=== PATIENT | female | born 1985 | race Two or more races ===

== ENCOUNTER 2018-12-18 08:05 | Inpatient (IN) | payer OTHER ==
[~2018-12-18] VITALS: Ht 165.1 cm; Wt 117.9 kg
[2018-12-18] VITALS (19 sets, daily range): BP systolic 66–137; BP diastolic 50–74
[~2018-12-18 08:05] MED LIST: cefOXitin Sod 2 GM in D5W 110 ML IVPB ONE
[2018-12-18] MEDS ORDERED: ONE DAILY MULT1 EAC1 ORAL (08:36)
[2018-12-18] MEDS ORDERED: IRON18 M1 PO (08:36)
[2018-12-18] MEDS ORDERED: PROBIOTIC1 EAC2 PO (08:36)
[2018-12-18] MEDS ORDERED: FISH OIL CAP1000 MG ORAL (08:36)
[2018-12-18] MEDS ORDERED: VITAMIN B122500 MCG PO (08:36)
[2018-12-18] MEDS ORDERED: Bupivacaine 0.5% Inj 30 ml vial INJ ONE (08:42)
[2018-12-18] MEDS ORDERED: NS Irrig 1000ml IRRIG ONE ×2 (09:24→10:20)
[2018-12-18] MEDS ORDERED: Zemuron 50mg/5ml Inj IV ONE ×2 (09:48→11:11)
[2018-12-18] MEDS ORDERED: Midazolam 2mg/2ml Inj ONE (09:49)
[2018-12-18] MEDS ORDERED: fentaNYL 100 mcg/2 mL IV ONE ×2 (09:49→11:06)
[2018-12-18] MEDS ORDERED: cefOXitin 2gm Inj ONE (09:51)
[2018-12-18] MEDS ORDERED: Sterile Water Irrig 1000ml IRRIG ONE (10:00)
[2018-12-18] MEDS ORDERED: NS Irrig 1000ml ONE (10:00)
[2018-12-18] MEDS ORDERED: LR 1000ml ONE (10:00)
--- NOTE | 2018-12-18 10:10 | Pre-Procedure Note/Attestation ---
Pre-Procedure Note/Attestation Complete Prior to Procedure Planned Procedure: not applicable Procedure Narrative: Hysteroscopy, dilation and curettage, mini-lap myomectomy Indications for Procedure Pre-Operative Diagnosis: Uterine fibroids, pelvic pain, abnormal uterine bleeding Attestation I attest that I discussed the nature of the procedure; its benefits; risks and complications; and alternatives (and the risks and benefits of such alternatives ), prior to the procedure, with the patient (or the patient's legal open claims representative). I attest that, if there was a reasonable possibility of needing a blood transfusion, the patient (or the patient's legal open claims representative) was given the [place] Department [employer] Services standardized written summary, pursuant to the Jair Reinaldo Blood Safety Act ([place] Health and Safety Code # 1645, as amended). I attest that I re-evaluated the patient just prior to the surgery and that there has been no change in the patient's H&P, except as documented below: NONE Hina Ibarra M.D. Dec 18, 2018 10:10
[2018-12-18] MEDS: Ropivacaine 5mg/ml Vial 30ml INJ ONE ×2 (10:20→12:22)
[2018-12-18] MEDS ORDERED: DiphenhydrAMINE 50mg/ml Inj IVP PRN (10:45)
[2018-12-18] MEDS ORDERED: fentaNYL 100 mcg/2 mL IV PRN (10:45)
[2018-12-18] MEDS ORDERED: Metoclopramide 10mg/2ml Inj IVP PRN (10:45)
[2018-12-18] MEDS ORDERED: Propofol 200mg/20ml IV ONE (10:49)
[2018-12-18] MEDS ORDERED: Metoclopramide 10mg/2ml Inj ONE (10:49)
[2018-12-18] MEDS ORDERED: Lidocaine 1% MPF 10mg/ml 5ml ONE (10:49)
--- NOTE | 2018-12-18 10:49 | Anethesia Preoperative Eval ---
Anesthesia Pre-op PMH/ROS General Date of Evaluation: Dec 18, 2018 Time of Evaluation: 10:00 Anesthesiologist: timo ASA Score: ASA 2 Mallampati Score Class I : Soft palate, uvula, fauces, pillars visible Class II: Soft palate, uvula, fauces visible Class III: Soft palate, base of uvula visible Class IV: Only hard plate visible Mallampati Classification: Class II Surgeon: shanique Diagnosis: uterine fibroids Surgical Procedure: mini laparatomy Anesthesia History: none Allergies: Coded Allergies: No Known Allergies (Unverified , 12/18/18) Medications: see eMAR Patient NPO?: Yes NPO Date: Dec 18, 2018 NPO Time: 00:01 Past Medical History Cardiovascular: Denies: HTN, CAD, NM, valve dz, arrhythmia, other Pulmonary: Denies: asthma, COPD, CARMINA, other Gastrointestinal/Genitourinary: Denies: GERD, CRI, ESRD, other Neurologic/Psychiatric: Denies: dementia, CVA, depression/anxiety, TIA, other Endocrine: Denies: DM, hypothyroidism, steroids, other HEENT: Denies: cataract (L), cataract (R), glaucoma, NOME (L), NOME (R), other Hematology/Immune: Denies: anemia, DVT, bleeding disorder, other Musculoskeletal/Integumentary: Denies: OA, RA, DJD, DDD, edema, other Other: obesity Anesthesia Pre-op Phys. Exam Physician Exam Last Vital Signs Date Time Temp Pulse Resp B/P (MAP) Pulse Ox O2 Delivery O2 Flow Rate FiO2 12/18/18 08:42 97.9 67 18 137/74 97 Room Air Constitutional: NAD Neurologic: CN 2-12 intact Cardiovascular: RRR Respiratory: CTA Gastrointestinal: S/NT/ND Airway Exam Mallampati Classification 2 Mallampati Score: Class II MO: full ROM: full Dentures: no upper, no lower Anesthesia Pre-op A/P Labs Urine Test Test 12/18/18 08:10 Urine HCG, Qualitative Negative (NEGATIVE) Studies Pre-op Studies: EKG - r Risk Assessment & Plan Plan: general Pre-Antibiotics Drug: mefoxitin Given Within 1 Hr of Incision: Yes Time Given: 10:20 Jaci Cartwright CRNA Dec 18, 2018 10:49
[2018-12-18] MEDS ORDERED: Acetaminophen (Non formulary) 100 ML IV ONE (11:30)
[2018-12-18] MEDS ORDERED: Ropivacaine 5mg/ml Vial 30ml INJ ONE (12:19)
[2018-12-18] MEDS ORDERED: Zolpidem 5mg tab ORAL PRN (12:30)
[2018-12-18] MEDS ORDERED: Ketorolac 30mg Inj IM PRN (12:30)
[2018-12-18] MEDS ORDERED: HYDROcodone/Acetamin 10/325 tab ORAL PRN (12:30)
[2018-12-18] MEDS ORDERED: HYDROcodone/Acetamin 5/325 tab ORAL PRN (12:30)
[2018-12-18] MEDS ORDERED: HYDROmorphone 1mg/ml Carpuject IVP PRN ×2 (12:30→18:30)
--- NOTE | 2018-12-18 12:30 | Operative Note - PDOC ---
Operative Note Operative Note Date of Operation/Procedure: Dec 18, 2018 Chief Complaint: Pelvic pain, abnormal bleeding, uterine fibroids Pre-op Diagnosis: Uterine fibroids, pelvic pain, abnormal uterine bleeding Procedure: Hysteroscopy, dilation and curettage, abdominal myomectomy Post-op Diagnosis: Uterine fibroids, possible adenomyosis Surgeon: Hina Ibarra MD Vacuum Drier Tender: Reji Sharp MD Anesthesiologist: Jaci Cartwright Anesthesia: general Specimen: yes Complications: none Condition: stable Fluids: 1000cc crystallod Estimated Blood Loss: volume - 150cc Drains: other - Gray in situ, 75cc clear urine at the end of the procedure Implant(s) used?: No Indications for Procedure Pelvic pain, AUB, fibroids Description of Procedure The R/B/A of the procedure were discussed with the patient and informed consent was obtained. The patient was taken to the operating room with IV in place. She was placed on the operating table in dorsal supine position. SCD stockings were placed. General anesthesia was administered without difficulty. The patient was then placed in the dorsal lithotomy position. The was prepped and draped in the usual sterile fashion. Gray catheter was inserted into the urinary bladder. A time out was called to verify patient and procedure. A bivalve speculum was inserted into the vagina and the anterior lip of the cervix was grasped with a single-toothed tenaculum. The cervix was sequentially dilated to accommodate the diagnostic hysteroscope. The hysteroscope was inserted and the uterine cavity was noted to be normal, however the uterus was bulky posteriorly. The bilateral ostia were visualized and noted to be normal. The hysteroscope was withdrawn and curettage was performed. The endometrial curettings were handed off the surgical field to be sent to Pathology. All instruments were removed from the vagina and attention was then turned to the abdomen. A Pfannenstiel incision was made with the scalpel and carried down through the subcutaneous tissue to the fascia with the bovie. The fascia was incised at the midline and extended laterally with the bovie. The fascia was from the underlying rectus tissue superiorly and inferiorly using blunt dissection and with the bovie. The peritoneum was identified, entered bluntly and stretched , with care being taken to identify and avoid the bladder. The Jayy retractor was placed and stabilized without complication. The uterus was elevated into the incision. Two fibroids were visualized on the fundal portion of the uterus and an additional small fibroid was palpated in the posterior lower uterine segment, however it was approaching the cervix and thus the decision was made to leave the fibroid in situ. The uterus itself was very globular and soft, concerning for adenomyosis, and no additional discrete fibroids were palpated within the uterine wall. Myomectomy was performed - Pitrussin was injected in the base of the fibroids. The serosa was incised with the bovie and the fibroids were easily dissected away from the myometrial tissue. This was done for both fibroids. The uterine incision sites were closed using multilayer closure of 0-Vicryl. The serosa was reapproximated with 3-0 Vicryl and excellent hemostasis was noted. The abdomen was irrigated and the uterine incisions were again inspected and noted to be hemostatic. The Jayy retractor was removed without incident. A manual and visual sweep was performed. The anterior peritoneum was closed with a running suture of 2-0 Vicryl and the rectus muscles were reapproximated with a running suture of 2-0 Vicryl. Excellent hemostasis was obtained. The fascia was closed with running sutures of 0-Vicryl. The subcutaneous layer was irrigated, all bleeding vessels were cauterized, and then closed with running 3- 0 plain suture. The skin was closed witn 4-0 Monocryl in a subcuticular fashion. Mastisol, steri-strips, and a pressure dressing were applied. All instrument, sponge, and needle counts were correct x 2. The patient was brought to the recovery room in stable condition. Hina Ibarra M.D. Dec 18, 2018 12:29
[2018-12-18] MEDS ORDERED: Ketorolac 30mg Inj ONE (12:34)
[2018-12-18] MEDS ORDERED: Neostigmine 1mg/ml 10ml Inj ONE (12:34)
[2018-12-18] MEDS ORDERED: Glycopyrrolate 0.2mg/ml 1ml Vial ONE (12:34)
--- NOTE | 2018-12-18 12:44 | Immediate Post-Op Evaluation ---
Immediate Post-Op Evalulation Immediate Post-Op Evalulation Procedure: myomectomy Date of Evaluation: Dec 18, 2018 Time of Evaluation: 12:44 IV Fluids: 1000 Blood Products: 0 Estimated Blood Loss: 100 Urinary Output: 100 Blood Pressure Systolic: 107 Blood Pressure Diastolic: 50 Pulse Rate: 45 Respiratory Rate: 14 O2 Sat by Pulse Oximetry: 99 Temperature (Fahrenheit): 97.5 Nausea: No Vomiting: No Patient Status: awake, reacts, patent Hydration Status: adequate Drug: mefoxitin Given Within 1 Hr of Incision: Yes Time Given: 10:00 Jaci Cartwright CRNA Dec 18, 2018 12:44
[2018-12-18] MEDS ORDERED: D5 1/2NS w/KCl 20mEq 1,000 ML IV SCH (14:00)
--- NOTE | 2018-12-18 15:00 | NUR ---
NURSE NOTES: PATIENT RECEIVED FROM PACU ON BED WITH FAMILY PRESENT. PATIENT AOX4. ABDOMINAL SURGICAL SITE C/D/I. DENIES PAIN AT THIS TIME. HUBBARD PATENT AND SECURED. BEDSIDE REPORT RECEIVED. PT/FAMILY ORIENTED TO ROOM. BED IN LOWEST AND LOCKED POSITION. CALL LIGHT WITHIN REACH AND DEMONSTRATED HOW TO USE. WILL CONTINUE TO MONITOR.
[2018-12-18] MEDS: D5 1/2NS w/KCl 20mEq 1,000 ML IV SCH ×2 (16:17→20:47)
--- NOTE | 2018-12-18 17:44 | NUR ---
NURSE NOTES: PATIENT REMAINS STABLE. PAIN MANAGED WITH PAIN MEDICATIONS. VSS.AFEBRILE. SURGICAL SITE C/D/I.
--- NOTE | 2018-12-18 19:21 | NUR ---
HAND-OFF: Report given to DELORES GARDNER LVN.
--- NOTE | 2018-12-18 19:21 | NUR ---
NURSE NOTES: Patient received Priscilla RVigneshPatient A/A/OX4 . Patient denies any pain at this time . no s/s of distress. RH g#20 D5 1/2 NS with 20 meq @150cc/hr Infusing . Anterior abdominal dressing C/D/I .zuniga catheter draining to yellow urine . patient kept NPO Except meds and ice chips . Patient verbalized her understanding . Family at bedside. Safety / fall precaution . call light within reach .bed in low position . will continue to monitor .
[2018-12-18] MEDS: Ketorolac 30mg Inj IM SCH (20:47)
--- NOTE | 2018-12-18 20:47 | NUR ---
NURSE NOTES:Patient vss, afebrile . Pain managed with pain medications. will continue to monitor.
[2018-12-19] VITALS: BP 133/73
[2018-12-19] MEDS: Ketorolac 30mg Inj IM SCH ×2 (03:05→08:53)
[2018-12-19 04:00] VITALS: BP 113/61
[2018-12-19] MEDS: D5 1/2NS w/KCl 20mEq 1,000 ML IV SCH ×2 (04:11→11:00)
--- NOTE | 2018-12-19 06:00 | NUR ---
NURSE NOTES:Patient zuniga catheter d/cd at 06:00 am with 750 yellow color urine out put . will continue to monitor. jose care done with scanty vaginal bleeding with new peripad . will continue to monitor .
[2018-12-19 07:20] VITALS: BP 113/61
--- NOTE | 2018-12-19 07:20 | NUR ---
HAND-OFF: Report given to MINESH Rodriguez and to watch patient voiding .
[2018-12-19 07:24] LABS: BASOPHILS % (AUTO) 0.3 % (0.0-2.0); EOSINOPHILS % (AUTO) 0.6 % (0.0-3.0); HEMATOCRIT 34.1 % (37.0-47.0); HEMOGLOBIN 11.2 G/DL (12.0-16.0); LYMPHOCYTES % (AUTO) 16.5 % (20.0-45.0); MEAN CORPUSCULAR VOLUME 91 FL (80-99); MONOCYTES % (AUTO) 7.6 % (1.0-10.0); PLATELET COUNT 182 K/UL (150-450); RED BLOOD COUNT 3.74 M/UL (4.20-5.40); RED CELL DISTRIBUTION WIDTH 14.6 % (11.6-14.8); WHITE BLOOD COUNT 8.9 K/UL (4.8-10.8)
--- NOTE | 2018-12-19 07:44 | NUR ---
NURSE NOTES: AWAKE/ALERT. PAIN SCALE 5/10 GIVEN NORCO 5/10 1 TAB PO. WITH MINIMAL VAGINAL BLEEDING. IN NO DISTRESS.
[2018-12-19 08:00] VITALS: BP 122/69
--- NOTE | 2018-12-19 10:57 | 48 Hour Post Anesthesia Eval ---
Post Anesthesia Evaluation Procedure: myomectomy Date of Evaluation: Dec 19, 2018 Time of Evaluation: 10:56 Blood Pressure Systolic: 128 0: 76 Pulse Rate: 64 Respiratory Rate: 20 Temperature (Fahrenheit): 97.6 O2 Sat by Pulse Oximetry: 98 Airway: patent Nausea: No Vomiting: No Pain Intensity: 3 Hydration Status: adequate Cardiopulmonary Status: stable Mental Status/LOC: patient returned to baseline Follow-up Care/Observations: n/a Post-Anesthesia Complications: none Follow-up care needed: ready to discharge Geronimo Campuzano MD Dec 19, 2018 10:57
[2018-12-19 12:00] VITALS: BP 130/72
--- NOTE | 2018-12-19 12:09 | General Progress Note ---
Progress Note Progress Note GYNECOLOGY PROGRESS NOTE S: Patient is POD#1 s/p HSC, D&C, mini-lap myomectomy. She is doing well - tolerating PO, passing flatus, voiding, and ambulating. O: Vitals reviewed, WNL Exam: Gen: NAD CV: No tachycardia Pulm: No increased work of breathing Abd: Soft, obese, appropriate TTP - bandage removed, incision c/d/i with steri- strips in place Ext: No calf TTP Labs: Test 12/19/18 06:38 White Blood Count 8.9 K/UL (4.8-10.8) Red Blood Count 3.74 M/UL (4.20-5.40) L Hemoglobin 11.2 G/DL (12.0-16.0) L Hematocrit 34.1 % (37.0-47.0) L Mean Corpuscular Volume 91 FL (80-99) Mean Corpuscular Hemoglobin 30.0 PG (27.0-31.0) Mean Corpuscular Hemoglobin Concent 32.8 G/DL (32.0-36.0) Red Cell Distribution Width 14.6 % (11.6-14.8) Platelet Count 182 K/UL (150-450) Mean Platelet Volume 7.3 FL (6.5-10.1) Neutrophils (%) (Auto) 75.0 % (45.0-75.0) Lymphocytes (%) (Auto) 16.5 % (20.0-45.0) L Monocytes (%) (Auto) 7.6 % (1.0-10.0) Eosinophils (%) (Auto) 0.6 % (0.0-3.0) Basophils (%) (Auto) 0.3 % (0.0-2.0) A/P: 33yo G0 s/p mini-lap myomectomy, HSC, D&C - doing well, no issues - Discharge patient home - she has met all post-op milestones - Labs wnl - Prescriptions were filled prior to admission - Return precautions reviewed - f/u in the office in 2 weeks Hina Ibarra M.D. Dec 19, 2018 12:09
--- NOTE | 2018-12-19 13:20 | NUR ---
NURSE NOTES: DISCHARGED HOME PER WHEELCHAIR ACCPD BY IN STABLE CONDITION. DC INSTRUCRIONS GIVEN.
--- NOTE | 2018-12-21 09:21 | Discharge Summary ---
Discharge Summary Hospital Course Date of Admission Dec 18, 2018 at 13:41 Date of Discharge Dec 19, 2018 at 13:20 Admitting Diagnosis Pelvic pain, uterine fibroids, abnormal uterine bleeding Reason for Hospitalization: Elective surgery HPI Magaly Scanlon is a 33 year old female who was admitted on Dec 18, 2018 at 13:41 for Uterine Fibroids Procedures s/p 12/18/[address] Alivia Ibarra s/post hysteroscopy, dilatation and curettage, mini-lap myomectomy Hospital Course status post surgery course of recovery uneventful on postop day 1 hemodynamically stable tolerated p.o. passed flatus voided freely ambulated without difficulties laboratory work-up within normal limits patient had prescription , which were filled prior to admission return precaution reviewed discharge instructions provided patient to follow-up with surgeon in the clinic in 2 weeks as outpatient FINAL DIAGNOSES Uterine fibroids Pelvic pain Abnormal uterine bleeding status post hysteroscopy, dilation and curettage, mini-lap myomectomy Discharge Medications Continued Medications: Cyanocobalamin (Vitamin B-12) (Vitamin B12) 2,500 Mcg Tablet Unknown Dose PO DAILY, TAB (This prescription has been renewed) Fish Oil (Fish Oil 1,000 mg Capsule) 1 Each Capsule 1000 MG ORAL DAILY, CAP (This prescription has been renewed) Iron (Iron) 18 Mg Tablet Unknown Dose PO DAILY, TAB (This prescription has been renewed) Lactobacillus Acidophilus (Probiotic) 1 Each Capsule 1 EACH PO DAILY, CAP (This prescription has been renewed) Multivitamin (One Daily Multivitamin) 1 Each Tablet 1 TAB ORAL DAILY, #30 TAB 0 Refills (This prescription has been renewed) Discharge Condition Upon Discharge: stable Discharge Disposition Patient was discharged home Discharge Instructions Discharge Instructions Special Instructions I have been assigned to complete a D/C Summary on this account. I was not involved in the patient management Yeimy Hartman NP Dec 21, 2018 09:21
--- NOTE | 2018-12-27 15:37 | NUR ---
CASE MANAGEMENT: Clinical information (face sheet/ ER MD notes/ H&P) faxed to [facility] @ [phone]. T#[id number]
== END 2018-12-19 13:20 | disposition home or self-care (01) | DRG 742 ==
LOC: SUR 08:05 → 3E 13:41
DX: D25.9 Leiomyoma of uterus, unspecified (principal); Z68.41 Body mass index [BMI] 40.0-44.9, adult; N93.9 Abnormal uterine and vaginal bleeding, unspecified; R10.2 Pelvic and perineal pain; E66.9 Obesity, unspecified; N94.6 Dysmenorrhea, unspecified
CPT/HCPCS: 36415; 81025; 85025; 94003; 94150; J2250; J2405; J2710; J2765

== ENCOUNTER 2019-02-08 13:58 | Emergency (ER) | payer OTHER ==
[~2019-02-08] VITALS: Ht 165.1 cm; Wt 117.9 kg
[~2019-02-08 13:58] MED LIST changes: +FISH OIL CAP1000 MG ORAL; +IRON18 M1 PO; +ONE DAILY MULT1 EAC1 ORAL; +PROBIOTIC1 EAC2 PO; +VITAMIN B122500 MCG PO; -cefOXitin Sod 2 GM in D5W 110 ML IVPB ONE
--- NOTE | 2019-02-08 14:24 | Emergency Room Report ---
History of Present Illness General Chief Complaint: General Complaint Source: Patient Present Illness HPI Patient is a 33-year-old female who presents after prolonged heavy vaginal bleeding. Patient had been followed by Dr. Katerina Ibarra. Recent been diagnosed with adenomyosis. She had previously been on progesterone however this been discontinued due to continued bleeding. Patient denies being . she is currently taking iron pills. She reports having some dizziness with ambulation. She reports having mild bleeding at this time. Onset of bleeding was 20 days ago. Allergies: Coded Allergies: No Known Allergies (Unverified , 12/18/18) Patient History Past Medical History: see triage record Past Surgical History: other - myomectomy Last Menstrual Period: on period Reviewed Nursing Documentation: PMH: Agreed; PSxH: Agreed Nursing Documentation-PMH Past Medical History: No History, Except For Hx Cardiac Problems: No - Uterine fibroid;myoectomy in November 2018 Hx Hypertension: No Hx Pacemaker: No Hx Asthma: No Hx COPD: No Hx Diabetes: No Hx Cancer: No Hx Gastrointestinal Problems: No Hx Dialysis: No History Of Psychiatric Problem: No Hx Neurological Problems: No Hx Cerebrovascular Accident: No Hx Seizures: No Hx Vertigo: Yes Review of Systems All Other Systems: negative except mentioned in HPI Physical Exam Vital Signs Date Time Temp Pulse Resp B/P (MAP) Pulse Ox O2 Delivery O2 Flow Rate FiO2 02/08/19 14:05 99.3 99 16 135/95 (108) 100 Room Air Sp02 EP Interpretation: reviewed, normal General Appearance: normal inspection, well appearing, no apparent distress, alert, GCS 15, obese Head: atraumatic Eyes: bilateral eye conjunctivae pale ENT: normal ENT inspection, hearing grossly normal, normal voice Neck: normal inspection, full range of motion, supple, no bony tend Respiratory: normal inspection, lungs clear, normal breath sounds, no respiratory distress, no retraction, no wheezing Cardiovascular #1: regular rate, rhythm, no edema Gastrointestinal: normal inspection, normal bowel sounds, non tender, soft, no guarding, no hernia Genitourinary: no CVA tenderness Musculoskeletal: normal inspection, back normal, normal range of motion Neurologic: normal inspection, alert, oriented x3, responsive, crm architect III-XII nml as tested, speech normal Psychiatric: normal inspection, judgement/insight normal, mood/affect normal Medical Decision Making Diagnostic Impression: Primary Impression: Anemia Additional Impression: Adenomyosis ER Course Patient presented for dizziness and persistent vaginal bleeding. Differential diagnosis include was not limited to anemia, coagulopathy, dehydration among others. Because of complexity of patient's case laboratory tests were ordered. Prior history of adenomyosis as well as uterine fibroids.Patient was noted to have some evidence of anemia. Patient is not bleeding at this time. She appears to be stable for outpatient follow-up and recheck. Patient will follow- up with Dr. Hina Ibarra who is the patient's primary OB she was advised to return if worse. Labs Test 02/08/19 14:30 White Blood Count 8.9 K/UL (4.8-10.8) Red Blood Count 2.77 M/UL (4.20-5.40) Hemoglobin 8.2 G/DL (12.0-16.0) Hematocrit 24.9 % (37.0-47.0) Mean Corpuscular Volume 90 FL (80-99) Mean Corpuscular Hemoglobin 29.5 PG (27.0-31.0) Mean Corpuscular Hemoglobin Concent 32.8 G/DL (32.0-36.0) Red Cell Distribution Width 13.3 % (11.6-14.8) Platelet Count 389 K/UL (150-450) Mean Platelet Volume 5.9 FL (6.5-10.1) Neutrophils (%) (Auto) 73.0 % (45.0-75.0) Lymphocytes (%) (Auto) 20.2 % (20.0-45.0) Monocytes (%) (Auto) 4.7 % (1.0-10.0) Eosinophils (%) (Auto) 1.6 % (0.0-3.0) Basophils (%) (Auto) 0.4 % (0.0-2.0) Prothrombin Time 10.1 SEC (9.30-11.50) Prothromb Time International Ratio 0.9 (0.9-1.1) Activated Partial Thromboplast Time 26 SEC (23-33) Urine Color Pale yellow Urine Appearance Slightly cloudy Urine pH 5 (4.5-8.0) Urine Specific [place] 1.025 (1.005-1.035) Urine Protein Negative (NEGATIVE) Urine Glucose (UA) Negative (NEGATIVE) Urine Ketones Negative (NEGATIVE) Urine Blood 5+ (NEGATIVE) Urine Nitrite Negative (NEGATIVE) Urine Bilirubin Negative (NEGATIVE) Urine Urobilinogen Normal MG/DL (0.0-1.0) Urine Leukocyte Esterase 1+ (NEGATIVE) Urine RBC 20-30 /HPF (0 - 2) Urine WBC 0-2 /HPF (0 - 2) Urine Squamous Epithelial Cells Occasional /LPF Urine Bacteria Occasional /HPF (NONE) Urine Mucus Few /LPF (NONE/OCC) Urine HCG, Qualitative Negative (NEGATIVE) Sodium Level 143 MMOL/L (136-145) Potassium Level 3.8 MMOL/L (3.5-5.1) Chloride Level 108 MMOL/L (98-107) Carbon Dioxide Level 28 MMOL/L (21-32) Anion Gap 7 mmol/L (5-15) Blood Urea Nitrogen 10 mg/dL (7-18) Creatinine 0.7 MG/DL (0.55-1.30) Estimat Glomerular Filtration Rate > 60 mL/min (>60) Glucose Level 122 MG/DL (74-106) Calcium Level 8.6 MG/DL (8.5-10.1) Total Bilirubin 0.2 MG/DL (0.2-1.0) Aspartate Amino Transf (AST/SGOT) 14 U/L (15-37) Alanine Aminotransferase (ALT/SGPT) 20 U/L (12-78) Alkaline Phosphatase 58 U/L (46-116) Total Protein 7.1 G/DL (6.4-8.2) Albumin 3.3 G/DL (3.4-5.0) Globulin 3.8 g/dL Albumin/Globulin Ratio 0.9 (1.0-2.7) Lipase 118 U/L (73-393) Last Vital Signs Date Time Temp Pulse Resp B/P (MAP) Pulse Ox O2 Delivery O2 Flow Rate FiO2 02/08/19 14:05 99.3 99 16 135/95 (108) 100 Room Air Status: improved Disposition: HOME, SELF-CARE Condition: Stable Scripts Ferrous Sulfate* (FERROUS SULFATE*) 325 Mg Tablet 325 MG ORAL THREE TIMES A DAY, #90 TAB 0 Refills Prov: Binh Alfonso MD 02/08/19 Binh Alfonso MD Feb 08, 2019 14:24
[2019-02-08 14:25] VITALS: BP 135/95
--- NOTE | 2019-02-08 14:25 | NUR ---
ED Nurse Note: Patient walked in to ER with from home due to having a period since 01/20/19. pt aao x4 and ambulatory. skin clean and intact. calm and cooperative. no acute distress noted. per pt, when she started a period on 01/20/19 it was her regular schedule for period but did not stop until today. pt reported it is bright or light red blood and pt denied cramping or vaginal changes. per reported she changes her pads about 4-5 times daily.
[2019-02-08 14:47] LABS: APPEARANCE,URINE SLIGHTLY CLOUDY; BASOPHILS % (AUTO) 0.4 % (0.0-2.0); BILIRUBIN, URINE NEGATIVE (NEGATIVE); COLOR,URINE PALE YELLOW; EOSINOPHILS % (AUTO) 1.6 % (0.0-3.0); GLUCOSE, URINE (UA) NEGATIVE (NEGATIVE); HEMATOCRIT 24.9 % (37.0-47.0); HEMOGLOBIN 8.2 G/DL (12.0-16.0); KETONES,URINE NEGATIVE (NEGATIVE); LEUKOCYTE ESTERASE ,URINE 1+ (NEGATIVE); LYMPHOCYTES % (AUTO) 20.2 % (20.0-45.0); MEAN CORPUSCULAR VOLUME 90 FL (80-99); MONOCYTES % (AUTO) 4.7 % (1.0-10.0); NITRITE,URINE NEGATIVE (NEGATIVE); PH,URINE 5 (4.5-8.0); PLATELET COUNT 389 K/UL (150-450); PROTEIN,URINE NEGATIVE (NEGATIVE); RED BLOOD COUNT 2.77 M/UL (4.20-5.40); RED CELL DISTRIBUTION WIDTH 13.3 % (11.6-14.8); UROBILINOGEN,URINE NORMAL MG/DL (0.0-1.0); WHITE BLOOD COUNT 8.9 K/UL (4.8-10.8)
[2019-02-08 14:59] LABS: ANION GAP 7 mmol/L (5-15); BLOOD UREA NITROGEN 10 mg/dL (7-18); CALCIUM 8.6 MG/DL (8.5-10.1); CARBON DIOXIDE 28 MMOL/L (21-32); CHLORIDE 108 MMOL/L (98-107); CREATININE 0.7 MG/DL (0.55-1.30); POTASSIUM 3.8 MMOL/L (3.5-5.1); SODIUM 143 MMOL/L (136-145)
[2019-02-08 15:03] LABS: ALANINE AMINOTRANSFERASE 20 U/L (12-78); ALBUMIN 3.3 G/DL (3.4-5.0); ALBUMIN/GLOBULIN RATIO 0.9 (1.0-2.7); ALKALINE PHOSPHATASE 58 U/L (46-116); ASPARTATE AMINO TRANSFERASE 14 U/L (15-37); BILIRUBIN,TOTAL 0.2 MG/DL (0.2-1.0)
[2019-02-08 15:04] LABS: INR 0.9 (0.9-1.1)
--- NOTE | 2019-02-08 15:05 | NUR ---
ED Nurse Note: ERMD at bedside speaking to pt and about lab results.
[2019-02-08] MEDS ORDERED: FERROUS SULFAT325 MG ORAL (15:16)
[2019-02-08 15:33] VITALS: BP 126/83
--- NOTE | 2019-02-08 15:33 | NUR ---
ED Nurse Note: Pt cleared by health care Provider for discharge. DC instructions/prescription was given and explained to pt and verbalized understanding of teachings. All medical deviecs such as ID band removed. Pt is AAO x4, ambulatory and left with all personal belongings.
== END 2019-02-08 15:33 | disposition home or self-care (01) ==
LOC: EMR 14:44
DX: D64.9 Anemia, unspecified (principal); N80.0 Endometriosis of uterus
CPT/HCPCS: 36415; 80053; 81003; 81025; 83690; 85025; 85610; 85730; 86850; 86900; 86901; 96360; 99284